=== PATIENT | female | born 1990 | race Two or more races ===

== ENCOUNTER 2020-09-15 20:50 | Observation (INO) | payer BC, OTHER, SELFPAY ==
[2020-09-15 21:00] VITALS: BMI 34.7
[2020-09-15 21:10] VITALS: TEMP 36.3
--- NOTE | 2020-09-15 22:56 | OBADM ---
This patient, Son Gene Leal, admitted to the OB room Labor/Delivery/Recovery 103 for observation. Patient/family oriented to hospital policies and general routines including ID bracelet, bed and alarms, visiting hours, pain management, procedures, bathroom and other care routines, personal items, smoking policy, room service/diet, and visiting hours. Patient/Family are encouraged to report perceived risks to care and to ask questions if they do not understand what they are told or what they should do.
--- NOTE | 2020-10-09 19:56 | PM.OBTRLD ---
OB - Triage/Final Diagnosis Visit Information Comments/Additional reasons for admission: I have assessed the risk for this patient, Son Gene Leal, and determined that she would benefit from observation care. Final Diagnosis (1) False labor: Code(s): O47.9 - False labor, unspecified Status: Acute
== END 2020-09-15 22:45 | disposition home or self-care (01) ==
PROVIDERS: Admitting Provider Obstetrics & Gynecology; Visit Provider Obstetrics & Gynecology
DX: O47.1 False labor at or after 37 completed weeks of gestation (principal); Z3A.38 38 weeks gestation of pregnancy
CPT/HCPCS: G0378; G0379

== ENCOUNTER 2020-09-27 01:42 | Inpatient (IN) | payer OTHER, SELFPAY ==
[2020-09-27] VITALS (26 sets, daily range): BP systolic 73–144; BP diastolic 34–108; PULSE 62–129; RESP 16–22; TEMP 36.5–37.3; O2SAT 82–100; BMI 36.7
--- NOTE | 2020-09-27 02:05 | LDADM ---
This patient, Son Gene Leal, was admitted to Labor/Delivery/Recovery 106 on 09/27/20 at 01:42. Plans for labor, pain management and were discussed with patient. Patient/family oriented to hospital policies and general routines including ID bracelet, bed and alarms, visiting hours, pain management, procedures, bathroom and other care routines, personal items, smoking policy, room service/diet and guest tray routines, infant security routines, and visiting hours. Patient/Family are encouraged to report perceived risks to care and to ask questions if they do not understand what they are told or what they should do. See OBIX for further documentation.
[2020-09-27 02:50] LABS: Basophils Percent Auto 0.2 % (0.2-1.2); Eosinophils Percent Auto 0.3 % (0-4.4); Hematocrit 37.4 % (37.0-47.0); Hemoglobin 12.2 g/dL (12.0-15.0); Immature Granulocyte Absolute 0.06 K/mm3 (0.00-0.031); Immature Granulocyte Percent A 0.5 % (0-0.5); Lymphocytes Absolute Auto 2.98 K/mm3 (0.9-3.2); Lymphocytes Percent Auto 23.4 % (18.3-44.2); Mean Corpuscular HGB Conc 32.6 g/dl (32-36); Mean Corpuscular Hemoglobin 26.2 pg (26-34); Mean Corpuscular Volume 80.4 fl (80-100); Monocytes Absolute Auto 0.9 K/mm3 (0.1-0.6); Monocytes Percent Auto 7.1 % (2.6-8.5); Neutrophils Absolute Auto 8.7 K/mm3 (1.3-6.7); Neutrophils Percent Auto 68.5 % (45.5-73.1); Platelet Count Result 190 k/mm3 (150-375); Red Blood Count 4.65 M/mm3 (4.2-5.4); Red Cell Distribution Width 14.8 % (11.5-14.5); White Blood Count 12.7 K/mm3 (4.5-10.0)
[2020-09-27] MEDS: OXYTOCIN 30 UNITS/NS 500 ML 30 UNITS/500 ML BAG 999 UNITS IV CONT (02:55)
--- NOTE | 2020-09-27 03:11 | WPDOBADMIT ---
Obstetrics - Admit Note Admission Note: 30 y/o @ 39w5d here in active labor. record reviewed. No pertinent additions to the history and/or any subsequent changes in the physical findings that are not consistent with the expected course of the were found. Additions to the history and/or subsequent changes in the physical findings follow. None.
--- NOTE | 2020-09-27 03:12 | P.PCNOB_ITS ---
OB - Delivery Note Procedure Delivery date: 09/27/20 events: Induced HTN Induction method: none Delivery monitor: external FHT and external uterine Route of delivery: Episiotomy description: None Laceration Description: Perineal - 1st Degree Quantitative Blood Loss (ml): 176 Anesthesia type: Local Complications: GHTN. Declined induction. [place] Baby Date of : 09/27/20 Time of : 02:45 Weeks of gestation at delivery: 39 presentation: vertex position: Right Occiput Anterior Placenta delivery description: Spontaneous Narrative: After delivery cord clamped. Gasses and cord blood collected. Then collected cord blood for banking per patient request. Mother and baby in stable condition.
[2020-09-27] MEDS: OXYTOCIN 30 UNITS/NS 500 ML 30 UNITS/500 ML BAG 125 UNITS IV CONT (03:46)
[2020-09-27] MEDS: LACTATED RINGERS 1,000 ML 125 ML IV CONT (03:50)
[2020-09-27] MEDS: BENZOCAINE 20% AER SPR (*SP) 56 GM CAN 1 SPRAY TOPICAL (04:49)
[2020-09-27] MEDS: WITCH HAZEL 40 PADS 1 PAD TOPICAL (04:49)
--- NOTE | 2020-09-27 06:01 | PC.NURSE ---
09/27/2020 Patient brought to second floor OB in wheelchair. Pt transferred to bed without difficulty. Patient oriented to room, surroundings, and plan of care for Son discussed and she and her Daniel states understanding.
[2020-09-27] MEDS: DOCUSATE SODIUM 100 MG CAPSULE PO (06:19)
[2020-09-27] MEDS: IBUPROFEN 600 MG TABLET PO (06:19)
[2020-09-27] MEDS: MULTIVIT/MIN/PREN/FOL AC/IRON TABLET 1 TAB PO (06:19)
[2020-09-27] MEDS: LANOLIN (LANSINOH) 7.5 GM CREAM 1 APPLIC TOPICAL (06:20)
[2020-09-27 10:19] LABS: Rapid Plasma Reagin Non-Reactive (NonReactive)
--- NOTE | 2020-09-27 11:15 | PC.NURSE ---
Mother called out for assist with feeding. Consulted with patient, reports has fed well since . Mother denies nipple discomfort with feeding. Reviewed infant feeding cues, frequencies, duration of feedings, feeding elimination flow sheet, and signs of adequate intake. Demonstrated stimulation techniques to wake for feeding. Assisted with to breast. Reviewed positioning/alignment in cross cradle, holding breast in U hold and guided asymmetrical latch on. Infant was able to latch correctly with first attempt. nursed eagerly, with steady draws and frequent swallowing noted. Reviewed signs of a correct latch, effective nursing and suck swallow ratio. was able to maintain latch. Mother reported tenderness at times, had slipped to shallow latch. Demonstrated how to adjust latch more deeply while feeding. Mother quickly reports she can feel infant is latched more deeply and has minimal tenderness. Suggested to stimulate while feeding to keep infant awake and nursing effectively for increased stimulation and increased intake. Instructed mother to call out for RN assistance if she is unable to latch for feeding or she has discomfort with nursing. Instructed feeding should be initiated three hours from start of last feeding or if feeding cues are noted before. Mother voiced understanding of information shared.
[2020-09-28 05:23] LABS: Hematocrit 23.8 % (37.0-47.0); Hemoglobin 7.9 g/dL (12.0-15.0)
--- NOTE | 2020-09-28 07:39 | PM.OBPNVD ---
OB - PN: Subj Subjective Date/time seen: 09/28/20 07:39 Patient comments: no complaints baby status: doing well OB - PN: Obj Data Labs CBC & Chem 7: 09/28/20 04:16 Labs: Laboratory Results - last 24 hr 09/27/20 09/27/20 09/28/20 02:17 09:00 04:16 Hgb 7.9 L D Hct 23.8 L RPR Non-reactive Blood Type O Positive Antibody Screen Negative OB - PN A/P Plan day: 1 Plan: routine care Time Spent With Patient Time: Total time spent is greater than 50% in coordination of care (as documented) at patient's floor/unit and/or counseling patient: Review of Systems Review of Systems: All systems reviewed & are unremarkable except as noted in HPI and below Exam Const: General: cooperative Limitations: no limitations
[2020-09-28 08:15] VITALS: BP 105/68; PULSE 118; RESP 16; TEMP 37.1; O2SAT 100
[2020-09-28] MEDS: MULTIVIT/MIN/PREN/FOL AC/IRON TABLET 1 TAB PO (11:00)
[2020-09-28] MEDS: POLYSACCHARIDE IRON COMPLEX 150 MG CAPSULE PO ×2 (11:00→16:48)
[2020-09-28] MEDS: DOCUSATE SODIUM 100 MG CAPSULE PO ×2 (11:00→16:48)
--- NOTE | 2020-09-28 11:05 | PC.NURSE ---
Consulted with patient, mother reports infant is more awake and eagerly feeding. Reviewed feeding cues, frequencies, duration of feedings, feeding elimination flow sheet, and signs of adequate intake. Demonstrated stimulation techniques to wake for feeding. Assisted with to breast. Reviewed positioning/alignment in cross cradle, holding breast in U hold and guided asymmetrical latch on. was able to latch correctly within a few attempts. Infant nursed eagerly, with steady draws and frequent swallowing noted. Infant has good improvement from previous day. Infant was more short quick chewy type suckling. Today is more consistent with more rhythmical draws. Reviewed signs of a correct latch, effective nursing and suck swallow ratio. Infant was able to maintain latch. Mother reported tenderness at times, infant had slipped to shallow latch. Demonstrated how to adjust latch more deeply while feeding. Mother quickly reports she can feel is latched more deeply and has minimal tenderness. Advised must be stimulated while feeding to keep infant awake and nursing effectively for increased stimulation and increased intake and assisting with jaundice. Instructed mother to call out for RN assistance if she is unable to latch infant for feeding or she has discomfort with nursing. Instructed feeding should be initiated three hours from start of last feeding or if feeding cues are noted before. Mother voiced understanding of information shared.
[2020-09-28] MEDS: WITCH HAZEL 40 PADS 1 PAD TOPICAL (16:48)
[2020-09-28 21:14] VITALS: BP 119/80; PULSE 95; RESP 15; TEMP 37.1
--- NOTE | 2020-09-29 07:52 | PM.OBPNVD ---
OB - PN: Subj Subjective Date/time seen: 09/29/20 07:52 Patient comments: no complaints baby status: doing well OB - PN: Obj Data Labs CBC & Chem 7: 09/28/20 04:16 OB - PN A/P Plan day: 2 Plan: routine care and discharge home (F/U in 4 weeks) Comments: Prior to discharge we will recheck h&h. Pt had a normal qbl initially but did have additional significant blood loss during recover which stabilized. Pt is asymptomatic. Time Spent With Patient Time: Total time spent is greater than 50% in coordination of care (as documented) at patient's floor/unit and/or counseling patient: Time with patient: less than 15 minutes Review of Systems Review of Systems: All systems reviewed & are unremarkable except as noted in HPI and below Exam Narrative: Exam Narrative: Fundus firm and vaginal flow controlled. No lower ext redness, warmth, or edema. Negative homans. Const: General: comfortable Chest: Breast/axilla inspection: normal inspection of the breasts Resp: Effort & Inspection: normal respiratory effort Cardio: Rate: regular rate GI: GI Palp: Yes Soft to palpation Psych: Appearance: grossly normal Affect: normal affect Attitude: cooperative Thought content: Yes Normal thought content present Judgement: Good judgement present (Psych)
[2020-09-29] MEDS: POLYSACCHARIDE IRON COMPLEX 150 MG CAPSULE PO (10:07)
[2020-09-29] MEDS: DOCUSATE SODIUM 100 MG CAPSULE PO (10:07)
[2020-09-29] MEDS: MULTIVIT/MIN/PREN/FOL AC/IRON TABLET 1 TAB PO (10:07)
[2020-09-29 10:30] VITALS: BP 128/88; PULSE 113; RESP 18; TEMP 36.5; O2SAT 100
[2020-09-29 11:24] LABS: Hematocrit 24.6 % (37.0-47.0); Hemoglobin 8.1 g/dL (12.0-15.0)
--- NOTE | 2020-09-29 14:15 | PC.NURSE ---
Mother is able to independently latch infant with appropriate positioning/alignment. She denies any nipple discomfort, is feeding as required and waking to feed if needed. Mother is working to keep infant awake and with more effective nursing while at breast, understanding the importance with jaundice. has had several effective feedings in the past 24 hours, and is currently meeting outcomes for weight, output, jaundice and feeding frequencies. Mother states she feels confident to continue effective at home. Mother has a pump for home use. Discussed pumping a few times per day once home to assist with stimulation of milk supply. Reviewed transition to breast milk, signs of adequate intake, and engorgement/relief. Instructed to call ICP if intake/output less than required. Reviewed regular medications mother is taking. Information provided per [place]. Reviewed community resources on the [facility] and in the Mom/Baby guide. Information on outpatient services provided. Mother has no further questions at this time.
--- NOTE | 2020-09-29 17:27 | PC.NURSE ---
1111 H&H drawn per order Shelby [facility] 1233 H&H result of 8.1 and 24.6 reported to Shelby; stable H&H; pt OK for discharge home as planned.
--- NOTE | 2020-09-29 17:34 | PC.NURSE ---
3345 Pt and her have been given time to read through pt's and baby's discharge papers. Parents had no questions. Mother signed the papers.
[2020-09-30 12:33] VITALS: BP 138/80; PULSE 118; RESP 18; TEMP 36.8; O2SAT 100
--- NOTE | 2020-10-17 08:28 | PM.OBDSVD ---
DS: Admitting Diagnosis Admitting Diagnosis Admitting Diagnosis: Labor DS: Discharge Diagnosis Discharge Diagnosis (1) Vaginal delivery: Code(s): O80 - Encounter for full-term uncomplicated delivery Status: Acute OB - DS: Summary OB Procedures : None OB Procedures Intrapartum: Spontaneous Vag Delivery OB Procedures: : None Time Spent with Patient Time attestation: Total time spent providing and/or coordinating discharge services: Discharge Plan Discharge Attending physician on discharge: Sarina Duran Consulting providers: Sarina Duran ; Shaila Moore Discharging Clinician: Sarina Duran Patient Disposition: Home, Self-Care Activity: pelvic rest Diet: as tolerated Discharge Instructions: Education: Mom and Baby Guide Given to: Mother Follow-Up: Call your delivering provider's office for an appointment to be seen in: 4 Weeks Mom and baby should come to the [facility] for the follow-up appointment. Appointment Date/Time: September 30, 2020 at 1200 What to expect at your follow-up visit: Blood Pressure Check Physical Assessment Call [phone] if you are unable to keep your appointment time. BREAST CARE: * Wear a snug supportive bra. * For engorgement discomfort: Breast Feeding: * Apply warm moist washcloths * Express milk as needed to relieve engorgement * Wear loose clothing * For sore nipples: * Identify correct latch-on * Apply warm moist washcloths before and after nursing * Air dry nipples after nursing * May apply Lansinoh cream to nipples EPISIOTOMY/PERINEAL CARE: * Until bleeding stops, use your julianne bottle after urinating * Change your pad frequently throughout the day * You may take sitz baths several times a day (fill your bathtub with warm water and soak for 20 minutes.) Do NOT bathe in the water * No tub baths until seen by your physician - You may shower ACTIVITY: * Rest as much as possible. * Do not exercise or lift anything heavier than your baby (such as laundry or other children.) * Avoid stairs or driving as much as possible. * Do not put anything into the vagina. No douching, tampons, or sexual activity until seen by physician. NOTIFY PHYSICIAN IF YOU HAVE ANY QUESTIONS OR IF ANY OF THE FOLLOWING SYMPTOMS OCCUR: * If your perineum becomes red, swollen, or more painful than what you have experienced in the hospital. * If your vaginal bleeding becomes foul smelling. * If your vaginal bleeding becomes more heavy than a period or if your bleeding changes from pink to bright red. However, you may pass an occasional walnut-sized clot once or twice for the first week . * If you experience a sharp, shooting pain in you calves. * If you discover a hard, reddened area on your breast or if you experience flu-like symptoms. * Temperature of 100.8 or higher DIET: * Eat regular, well-balanced meals. * Drink plenty of fluids daily. If , drink to thirst. Stand Alone Forms: General Discharge Information Follow-up/Referrals: Sarina Duran CNM [Certified Nurse Extraction Machine Operator] - 4 Weeks Discharge Medications: New polysaccharide iron complex 150 mg iron Capsule 150 mg PO BIDWM Qty: 60 RF: 0 Continued prenat.vits,rica,[id number] Tablet 1 tablet PO DAILY RF: 0 Date of admission: 09/27/20 01:42 Primary Care Provider: PHYSICIAN,COMPLAINT MANAGER Admitting Provider: Annie Shea Attending physician on admission: Annie Shea Condition: Stable
== END 2020-09-29 16:10 | disposition home or self-care (01) | DRG 560 ==
LOC: ANHLDR 02:08 → ANHOB2 05:40
PROVIDERS: Advanced Practice Midwife; Admitting Provider Obstetrics & Gynecology; Visit Provider Obstetrics & Gynecology
DX: O62.3 Precipitate labor (principal); Z37.0 Single live birth; Z3A.39 39 weeks gestation of pregnancy; O70.0 First degree perineal laceration during delivery; O13.4 Gestational [pregnancy-induced] hypertension without significant proteinuria, complicating childbirth
CPT/HCPCS: 36415; 84112; 85014; 85018; 85025; 86592; 86850; 86900; 86901; A9270; J2590; J7120

== ENCOUNTER 2023-05-21 16:08 | Outpatient (CLI) | payer SELFPAY ==
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
== END 2023-05-21 16:09 | disposition home or self-care (01) ==
LOC: ANHIMG 16:14
PROVIDERS: PCP Internal Medicine; Visit Provider Internal Medicine
DX: M54.2 Cervicalgia (principal); M54.6 Pain in thoracic spine
CPT/HCPCS: 72072